=== PATIENT | male | born 1990 | race Caucasian/White ===

== ENCOUNTER 2017-06-01 19:26 | Emergency (ER) | payer MEDICAID ==
[2017-06-01] MEDS ORDERED: ACETAMINOPHEN 325 MG TABLET PO STA (19:45)
[2017-06-01] MEDS ORDERED: SODIUM CHLORIDE 0.9% 1,000 ML IV ONE (20:27)
[2017-06-01] MEDS ORDERED: KETOROLAC 60 MG/2 ML VIAL IVP STA (20:27)
[2017-06-01] MEDS ORDERED: DEXAMETHASONE 10 MG/ML VIAL IVP STA (20:27)
--- NOTE | 2017-06-01 20:35 | ED Physician Documentation ---
History of Present Illness - Stated complaint Stated Complaint: BODY ACHES/HEADACHE/D/FEVER - Chief complaint Chief Complaint: General - History obtained from History obtained from: Family (Sick for 2 days with body aches, cough, severe chills and poor oral intake.) Review of Systems Constitutional: reports: Fever, Chills, Myalgias, Fatigue Nose: reports: Rhinorrhea / runny nose Throat: denies: Sore throat Respiratory: reports: Dyspnea, Cough GI: denies: Abdominal Pain, Vomiting PD PAST MEDICAL HISTORY - Past Medical History Past Medical History: Yes Respiratory: Asthma - Past Surgical History Past Surgical History: No - Present Medications Home Medications: Ambulatory Orders Medication Instructions Recorded Confirmed HYDROcod/ACETAM 5/325 [[place] 5/325] 1 - 2 ea PO Q6H PRN #10 tablet 06/01/17 Ibuprofen [Motrin] 800 mg PO Q8H PRN #30 tablet 06/01/17 Ondansetron HCl [Zofran] 4 mg PO Q6H PRN #10 tablet 06/01/17 Oseltamivir [Tamiflu] 75 mg PO BID #10 capsule 06/01/17 - Allergies Allergies/Adverse Reactions: Allergies Allergy/AdvReac Type Severity Reaction Status Date / Time No Known Drug Allergies Allergy Verified 06/01/17 19:30 - Social History Does the pt smoke?: No Smoking Status: Never smoker Does the pt drink ETOH?: No Does the pt have substance abuse?: No PD ED PE NORMAL - Vitals Vital signs reviewed: Yes - General General: Alert and oriented X 3, No acute distress - HEENT HEENT: PERRL, EOMI - Neck Neck: Supple, no meningeal sign, No bony TTP - Cardiac Cardiac: RRR, No murmur - Respiratory Respiratory: No respiratory distress, Clear bilaterally - Abdomen Abdomen: Non tender - Derm Derm: No rash - Neuro Neuro: Alert and oriented X 3, Normal speech - Psych Psych: Normal mood, Normal affect Results - Vitals Vitals: Vital Signs - 24 hr 06/01/17 06/01/17 19:38 21:03 Temperature 37.7 C H 99.8 C H Heart Rate 111 H 75 Respiratory 26 H 18 Rate Blood Pressure 116/79 124/65 O2 Saturation 98 95 Oxygen O2 Source Room air - Labs Labs: Laboratory Tests 06/01/17 19:59 Influenza A (Rapid) Negative Influenza B (Rapid) POSITIVE H Influenza Types A,B Ag + H - Rads (name of study) 2v chest Radiology: EMP read contemporaneously (normal) Departure - Departure Disposition: 01 Home, Self Care Clinical Impression: Influenza B Condition: Good Record reviewed to determine appropriate education?: Yes Instructions: ED Flu, Medication: Tamiflu (Oseltamivir) Prescriptions: HYDROcod/ACETAM 5/325 [[place] 5/325] 1 - 2 ea PO Q6H PRN #10 tablet PRN Reason: Pain Ibuprofen [Motrin] 800 mg PO Q8H PRN #30 tablet PRN Reason: PAIN &/OR FEVER Ondansetron HCl [Zofran] 4 mg PO Q6H PRN #10 tablet PRN Reason: Nausea / Vomiting Oseltamivir [Tamiflu] 75 mg PO BID #10 capsule Comments: Call your doctor to arrange a follow-up appointment, make the next available appointment. In the interim, return anytime if worse or if new symptoms develop. Forms: Activity restrictions
--- NOTE | 2017-06-01 20:59 | XRAY Preliminary Report ---
Exam: XR CHEST 2 VIEW X-RAY IMPRESSION: Normal 2-view chest radiography. [facility] SITE ID: [id number]
--- NOTE | 2017-06-01 20:59 | XRAY Report ---
EXAM: CHEST RADIOGRAPHY EXAM DATE: 06/01/2017 08:35 PM. CLINICAL HISTORY: Cough. COMPARISON: None. TECHNIQUE: 2 views. FINDINGS: Lungs/Pleura: No focal opacities evident. No pleural effusion. No pneumothorax. Normal volumes. Mediastinum: Heart and mediastinal contours are unremarkable. Other: None. IMPRESSION: Normal 2-view chest radiography. [facility] Referring Provider Line: [phone] SITE ID: [id number]
[2017-06-01 21:04] VITALS: BP 124/65
[2017-06-01] MEDS ORDERED: OSELTAMIVIR 75 MG CAPSULE PO STA (21:04)
== END 2017-06-01 21:30 | disposition home or self-care (01) ==
LOC: ED 19:26
DX: J11.1 Influenza due to unidentified influenza virus with other respiratory manifestations (principal)
CPT/HCPCS: 36415; 71046; 87275; 87276; 96361; 96374; 96375; 99283; A9270

== ENCOUNTER 2018-02-17 19:44 | Emergency (ER) | payer MEDICAID ==
--- NOTE | 2018-02-17 21:53 | ED Physician Documentation ---
History of Present Illness - Stated complaint Stated Complaint: COUGH/WEAKNESS - Chief complaint Chief Complaint: Resp - History obtained from History obtained from: Patient - History of Present Illness Timing: Today Pain level max: 0 Pain level now: 0 Improved by: no ameliorating factors Worsened by: ambulation, coughing - Additonal information Additional information: c/o cough that is productive at times, chest pain, generalized weakness and malaise, dizziness with standing and has had 2 brief syncopal episodes after standing up (few seconds before recovering consciousness). symptoms started yesterday Review of Systems Constitutional: reports: Chills, Myalgias, Fatigue, Sweats. denies: Fever (did not take temperature at home) Throat: denies: Sore throat Cardiac: reports: Chest pain / pressure. denies: Pedal edema Respiratory: reports: Cough. denies: Dyspnea, Hemoptysis, Wheezing GI: denies: Abdominal Pain : denies: Dysuria Neurologic: reports: Generalized weakness. denies: Focal weakness, Numbness PD PAST MEDICAL HISTORY - Past Medical History Past Medical History: No Cardiovascular: None Respiratory: Asthma Neuro: None Endocrine/Autoimmune: None GI: None : None HEENT: None Psych: None Musculoskeletal: None Derm: None - Past Surgical History Past Surgical History: No - Present Medications Home Medications: Ambulatory Orders Medication Instructions Recorded Confirmed Benzonatate [Tessalon Perle] 100 - 200 mg PO TID PRN #30 capsule 02/17/18 guaiFENesin/CODEINE [Robitussin AC] 5 - 10 ml PO Q6H PRN #100 udc 02/17/18 - Allergies Allergies/Adverse Reactions: Allergies Allergy/AdvReac Type Severity Reaction Status Date / Time No Known Drug Allergies Allergy Verified 02/17/18 19:51 - Social History Does the pt smoke?: No Smoking Status: Never smoker Does the pt drink ETOH?: No Does the pt have substance abuse?: No - Immunizations Immunizations are current?: Yes - POLST Patient has POLST: No PD ED PE NORMAL - Vitals Vital signs reviewed: Yes - General General: Alert and oriented X 3, Well developed/nourished, Other (frequent coughing during H+P; appears uncomfortable (no respiratory distress nor obvious painful distress, but appears achy and listless)) - HEENT HEENT: Pharynx benign, Other (pasty/tacky mucous membranes) - Neck Neck: Supple, no meningeal sign - Cardiac Cardiac: RRR, No murmur - Respiratory Respiratory: No respiratory distress, Clear bilaterally - Abdomen Abdomen: Soft, Non tender - Derm Derm: Normal color, Warm and dry - Extremities Extremities: No edema Results - Vitals Vitals: Vital Signs - 24 hr 02/17/18 02/17/18 19:49 23:46 Temperature 37.1 C Heart Rate 86 79 Respiratory 22 16 Rate Blood Pressure 123/75 128/81 H O2 Saturation 97 98 Oxygen O2 Source Room air - Labs Labs: Laboratory Tests 02/17/18 02/17/18 02/17/18 22:22 22:22 22:28 WBC 10.1 RBC 5.49 Hgb 15.8 Hct 46.2 MCV 84.3 MCH 28.8 MCHC 34.2 RDW 13.2 Plt Count 203 MPV 9.2 Neut # (Auto) 6.5 Lymph # (Auto) 2.5 [place] # (Auto) 0.8 Eos # (Auto) 0.2 Baso # (Auto) 0.1 Absolute Nucleated RBC 0.01 Nucleated RBC % 0.1 Sodium 137 Potassium 3.7 Chloride 102 Carbon Dioxide 27 Anion Gap 8.0 BUN 16 Creatinine 0.8 Estimated GFR (MDRD) 116 Glucose 91 Calcium 9.5 Influenza A (Rapid) Negative Influenza B (Rapid) Negative - Rads (name of study) chest xray Radiology: Prelim report reviewed, See rad report PD MEDICAL DECISION MAKING - ED course Complexity details: reviewed old records, reviewed results, re-evaluated patient, considered differential, d/w patient Departure - Departure Disposition: 01 Home, Self Care Clinical Impression: Bronchitis Condition: Good Instructions: ED Upper Resp Infec No Abx Tx Follow-Up: Raudel Stone PA-C [Primary Care Provider] - Prescriptions: Benzonatate [Tessalon Perle] 100 - 200 mg PO TID PRN #30 capsule PRN Reason: Cough guaiFENesin/CODEINE [Robitussin AC] 5 - 10 ml PO Q6H PRN #100 udc PRN Reason: Cough Forms: Activity restrictions Discharge Date/Time: 02/17/18 23:47
[2018-02-17] MEDS ORDERED: SODIUM CHLORIDE 0.9% 1,000 ML IV STA (22:09)
--- NOTE | 2018-02-17 22:23 | XRAY Report ---
Reason: cough, dyspnea Procedure Date: 02/17/2018 Accession Number: [id number] / [id number] Procedure: XR - Chest 2 View X-Ray CPT Code: 90563 FULL RESULT: EXAM: CHEST RADIOGRAPHY EXAM DATE: 02/17/2018 10:18 PM. CLINICAL HISTORY: Cough, dyspnea. COMPARISON: CHEST 2 VIEW 06/01/2017 8:34 PM. TECHNIQUE: 2 views. FINDINGS: Lungs/Pleura: No focal opacities evident. No pleural effusion. No pneumothorax. Normal volumes. Mediastinum: Heart and mediastinal contours are unremarkable. Other: None. IMPRESSION: Normal 2-view chest radiography. No significant interval change. [facility]
[2018-02-17 22:38] LABS: BASOPHILS # (AUTO) 0.1 10^3/uL (0.0-0.1); BASOPHILS % (AUTO) 0.6 %; EOSINOPHILS # (AUTO) 0.2 10^3/uL (0.0-0.7); EOSINOPHILS % (AUTO) 2.4 %; HGB - HEMOGLOBIN 15.8 g/dL (14.0-18.0); LYMPHOCYTES # (AUTO) 2.5 10^3/uL (1.5-3.5); LYMPHOCYTES % (AUTO) 24.6 %; MEAN CORPUSCULAR HEMOGLOBIN 28.8 pg (27.0-31.0); MEAN CORPUSCULAR HGB CONC 34.2 g/dL (32.0-36.0); MEAN CORPUSCULAR VOLUME 84.3 fL (80.0-94.0); MEAN PLATELET VOLUME 9.2 fL (7.4-11.4); MONOCYTES # (AUTO) 0.8 10^3/uL (0.0-1.0); MONOCYTES % (AUTO) 8.4 %; NEUTROPHILS # (AUTO) 6.5 10^3/uL (1.5-6.6); PLT - PLATELET COUNT 203 10^3/uL (130-450); RED BLOOD COUNT 5.49 10^6/uL (4.70-6.10); RED CELL DISTRIBUTION WIDTH 13.2 % (12.0-15.0); WHITE BLOOD COUNT 10.1 x10^3/uL (4.8-10.8)
[2018-02-17 22:45] LABS: CALCIUM 9.5 mg/dL (8.5-10.3); CREATININE 0.8 mg/dL (0.6-1.2)
[2018-02-17] MEDS ORDERED: BENZONATATE 100 MG CAPSULE PO STA (23:11)
[2018-02-17] MEDS ORDERED: guaiFENesin/CODEINE 5 ML UDC PO STA (23:11)
[2018-02-17 23:47] VITALS: BP 128/81
== END 2018-02-17 23:47 | disposition home or self-care (01) ==
LOC: ED 19:44
DX: J40 Bronchitis, not specified as acute or chronic (principal)
CPT/HCPCS: 36415; 71046; 80048; 85025; 87275; 87276; 96360; 99283; A9270

== ENCOUNTER 2018-04-13 08:32 | Emergency (ER) | payer OTHER, MEDICAID ==
[2018-04-13 08:41] VITALS: BP 122/76
--- NOTE | 2018-04-13 08:51 | ED Physician Documentation ---
PD HPI TRUNK INJURY - Stated complaint Stated Complaint: LT LOWER RIB PX - Chief complaint Chief Complaint: General - History obtained from History obtained from: Patient - History of Present Illness Location: Anterior chest, Left chest Type of injury: Twist (he was lifting heavy object at work and felt onset pain left lower rib. Eased some the following day and today, then felt pain abrupt again when he was leaning over against something and felt a sudden pain same area again.) Timing - onset: How many days ago (2) Timing - duration: Days (2) Timing - details: Abrupt onset, Waxing and waning Quality: Pain, Sharp Improved by: Rest, Immobilization (if he holds hand against the area) Worsened by: Moving, Palpating, Other (deep breathing) Associated symtptoms: No: Weakness, Numbness Contributing factors: No: Anticoagulated Similar symptoms before: Has not had sx before Recently seen: Not recently seen Review of Systems Constitutional: denies: Fever, Chills, Myalgias Nose: denies: Rhinorrhea / runny nose, Congestion Throat: denies: Sore throat Respiratory: denies: Cough GI: denies: Abdominal Pain, Nausea, Vomiting Skin: denies: Abrasion (s), Laceration (s) PD PAST MEDICAL HISTORY - Past Medical History Cardiovascular: None Respiratory: Asthma Neuro: None Endocrine/Autoimmune: None GI: None : None HEENT: None Psych: None Musculoskeletal: None Derm: None - Past Surgical History Past Surgical History: No - Present Medications Home Medications: Ambulatory Orders Medication Instructions Recorded Confirmed Hydrocodone/Acetaminophen [[place] 1 each PO Q6H PRN #12 tablet 04/13/18 5-325 Tablet] Naproxen 375 mg PO BID #20 tablet 04/13/18 - Allergies Allergies/Adverse Reactions: Allergies Allergy/AdvReac Type Severity Reaction Status Date / Time No Known Drug Allergies Allergy Verified 04/13/18 08:41 - Social History Does the pt smoke?: No Smoking Status: Never smoker Does the pt drink ETOH?: No Does the pt have substance abuse?: No - Immunizations Immunizations are current?: Yes - POLST Patient has POLST: No PD ED PE NORMAL - Vitals Vital signs reviewed: Yes - General General: Alert and oriented X 3, No acute distress, Well developed/nourished - Cardiac Cardiac: RRR, No murmur - Respiratory Respiratory: No respiratory distress, Clear bilaterally, Other (left lower costal margin at mid clavicular line with tenderness. no crepitance. ) - Abdomen Abdomen: Normal bowel sounds, Soft, Non tender, Non distended, No organomegaly - Derm Derm: Normal color, Warm and dry Results - Vitals Vitals: Vital Signs - 24 hr 04/13/18 08:39 Temperature 35.6 C L Heart Rate 76 Respiratory 14 Rate Blood Pressure 122/76 O2 Saturation 100 Oxygen O2 Source Room air - Rads (name of study) chest xray Radiology: Prelim report reviewed (normal xray), EMP read contemporaneously PD MEDICAL DECISION MAKING - ED course Complexity details: reviewed results, considered differential (strain vs contusion of the lower cartilage/costal margin. ), d/w patient Departure - Departure Disposition: 01 Home, Self Care Clinical Impression: Costal margin pain Strain of chest wall Qualifiers: Encounter type: initial encounter Qualified Code(s): S29.011A - Strain of muscle and tendon of front wall of thorax, initial encounter Condition: Stable Record reviewed to determine appropriate education?: Yes Instructions: ED Strain Chest Wall Follow-Up: Raudel Stone PA-C [Primary Care Provider] - Prescriptions: Hydrocodone/Acetaminophen [[place] 5-325 Tablet] 1 each PO Q6H PRN #12 tablet PRN Reason: Pain Naproxen 375 mg PO BID #20 tablet Comments: Anti-inflammatory such as naproxen twice daily for the next 7-10 days. Add Tylenol or hydrocodone as needed for pain. Light lifting the next few days to reduce the tension at the cartilage. Recheck if not improved over the next several days to week. Forms: Activity restrictions Discharge Date/Time: 04/13/18 09:40
[2018-04-13] MEDS ORDERED: oxyCODONE 5 MG TABLET PO STA (09:14)
[2018-04-13] MEDS ORDERED: NAPROXEN 250 MG TABLET PO STA (09:14)
--- NOTE | 2018-04-13 09:23 | XRAY Report ---
Reason: rib pain poss fx. Procedure Date: 04/13/2018 Accession Number: [id number] / [id number] Procedure: XR - Ribs w/PA Chest LT CPT Code: FULL RESULT: EXAM: LEFT RIB RADIOGRAPHY EXAM DATE: 04/13/2018 08:55 AM. CLINICAL HISTORY: Rib pain possible fx. COMPARISON: CHEST 2 VIEW 02/17/2018 10:10 PM. TECHNIQUE: 1 view of the chest and 3 views of the ribs. FINDINGS: Bones: Normal. No displaced fracture or bone lesion. Lungs: No focal opacities. No pneumothorax. No pleural effusions. Mediastinum: Heart and mediastinal contours are unremarkable. Other: None. IMPRESSION: Normal chest and rib radiography. No displaced fracture identified. [facility]
== END 2018-04-13 09:40 | disposition home or self-care (01) ==
LOC: ED 08:32
DX: S29.011A Strain of muscle and tendon of front wall of thorax, initial encounter (principal); R07.1 Chest pain on breathing; X50.0XXA Overexertion from strenuous movement or load, initial encounter; Y93.89 Activity, other specified; Y92.89 Other specified places as the place of occurrence of the external cause; Y99.0 Civilian activity done for income or pay
CPT/HCPCS: 71101; 99283; A9270

== ENCOUNTER 2018-04-15 05:20 | Emergency (ER) | payer OTHER, MEDICAID ==
--- NOTE | 2018-04-15 05:36 | ED Physician Documentation ---
History of Present Illness - Stated complaint Stated Complaint: LT RIB PAIN - Chief complaint Chief Complaint: General - History obtained from History obtained from: Patient - Additonal information Additional information: 27-year-old male returns to the emergency department with ongoing rib pain. The patient was seen 2 days ago for the same symptoms. The patient had an x-ray at that time which showed no evidence of pneumothorax or rib fractures. The patient reports ongoing pain secondary to lifting and moving at work. The patient is in the emergency department for a work release for the next week. The patient states he needs a week off to let his Ribs rest. The patient denies Any new trauma. The patient denies any new or different symptoms. The patient has not taken any medications to help his pain Review of Systems Constitutional: denies: Fever, Chills Eyes: denies: Discharge Ears: denies: Ear pain Nose: denies: Congestion Throat: denies: Sore throat Cardiac: denies: Chest pain / pressure Respiratory: denies: Cough GI: denies: Abdominal Pain Musculoskeletal: denies: Neck pain PD PAST MEDICAL HISTORY - Past Medical History Cardiovascular: None Respiratory: Asthma Neuro: None Endocrine/Autoimmune: None GI: None : None HEENT: None Psych: None Musculoskeletal: None Derm: None - Past Surgical History Past Surgical History: No - Present Medications Home Medications: Ambulatory Orders Medication Instructions Recorded Confirmed Hydrocodone/Acetaminophen [[place] 1 each PO Q6H PRN #12 tablet 04/13/18 5-325 Tablet] Naproxen 375 mg PO BID #20 tablet 04/13/18 - Allergies Allergies/Adverse Reactions: Allergies Allergy/AdvReac Type Severity Reaction Status Date / Time No Known Drug Allergies Allergy Verified 04/13/18 08:41 - Social History Does the pt smoke?: No Smoking Status: Never smoker Does the pt drink ETOH?: No Does the pt have substance abuse?: No - Immunizations Immunizations are current?: Yes - POLST Patient has POLST: No PD ED PE NORMAL - General General: Alert and oriented X 3, No acute distress - HEENT HEENT: Atraumatic, PERRL, EOMI, Ears normal - Cardiac Cardiac: RRR, Strong equal pulses - Respiratory Respiratory: No respiratory distress, Clear bilaterally, Other (The patient has good equal bilateral breath sounds. The patient has no crepitus or subcutaneous emphysema on examination. The patient is tender to palpation in the left mid axillary ribs) - Abdomen Abdomen: Soft, Non tender - Derm Derm: Normal color - Extremities Extremities: No deformity - Neuro Neuro: Alert and oriented X 3, Normal speech Results - Vitals Vitals: Vital Signs - 24 hr 04/15/18 05:26 Temperature 36.5 C Heart Rate 81 Respiratory 16 Rate Blood Pressure 122/86 H O2 Saturation 98 Oxygen O2 Source Room air PD MEDICAL DECISION MAKING - ED course ED course: The patient has no new injury or trauma, The patient has good lung sounds bilaterally on exam clinically there is no findings to suggest pneumothorax or rib fracture. I do not think repeat imaging is necessary at this time. The patient mainly is asking for a work release. I discussed warning signs and recommended returning for any worsening or concerns. Departure - Departure Disposition: 01 Home, Self Care Clinical Impression: Rib sprain Qualifiers: Encounter type: initial encounter Qualified Code(s): S23.41XA - Sprain of ribs, initial encounter Condition: Good Instructions: ED Strain Chest Wall Ch Follow-Up: Raudel Stone PA-C [Primary Care Provider] - Within 1 week Comments: Please return to the ED for worsening symptoms or any concerns Forms: Activity restrictions
[2018-04-15] MEDS ORDERED: NAPROXEN 250 MG TABLET PO STA (06:10)
[2018-04-15 06:17] VITALS: BP 122/85
== END 2018-04-15 06:18 | disposition home or self-care (01) ==
LOC: ED 05:20
DX: S23.41XA Sprain of ribs, initial encounter (principal); X50.0XXA Overexertion from strenuous movement or load, initial encounter; Y99.0 Civilian activity done for income or pay
CPT/HCPCS: 99283; A9270

== ENCOUNTER 2018-05-09 22:00 | Outpatient (CLI) | payer OTHER, MEDICAID ==
--- NOTE | 2018-05-10 06:02 | Ultrasound Report ---
Reason: LUQ PAIN,RIB PAIN,LEFT SIDED Procedure Date: 05/09/2018 Accession Number: [id number] / [id number] Procedure: US - Abdomen Limited CPT Code: FULL RESULT: EXAM: ABDOMEN ULTRASOUND LIMITED EXAM DATE: 05/09/2018 10:23 PM. CLINICAL HISTORY: Left upper quadrant pain, rib pain, left-sided. COMPARISON: None. TECHNIQUE: Real-time scanning was performed with static images obtained. FINDINGS: Spleen: Normal appearance, 11 cm in length. Left kidney: Normal appearance, 9 cm in length. Free fluid: None seen. IMPRESSION: 1. No gross splenic injury is seen by ultrasound. 2. No free fluid. 3. If there is continued clinical concern, CT with contrast is suggested. [facility]
== END 2018-05-09 22:01 | disposition home or self-care (01) ==
LOC: DI 22:00
PROVIDERS: ATTEND Physician Assistant Medical
DX: R10.12 Left upper quadrant pain (principal); R07.81 Pleurodynia
CPT/HCPCS: 76705

== ENCOUNTER 2019-03-21 21:30 | Emergency (ER) | payer MEDICAID, OTHER ==
--- NOTE | 2019-03-21 21:58 | ED Physician Documentation ---
PD HPI ABD PAIN - Stated complaint Stated Complaint: ABD PX/DURON - Chief complaint Chief Complaint: Abd Pain - History obtained from History obtained from: Patient - History of Present Illness Timing - onset: How many days ago (2) Timing - details: Gradual onset Pain level now: 6 Quality: Pain Location: RLQ Radiation: Other (does not radiate) Improved by: No: Eating, Laying still, Vomiting, BM, Position, Meds Worsened by: No: Eating, Moving, Breathing, Position, Palpation Associated symptoms: No: Fever, Nausea, Diarrhea, Constipation Similar symptoms before: Has not had sx before - Additional information Additional information: c/o 2-3 days of RLQ abdominal pain as well as generalized headache. Review of Systems Constitutional: reports: Reviewed and negative Cardiac: reports: Reviewed and negative Respiratory: reports: Reviewed and negative GI: reports: Abdominal Pain. denies: Nausea, Vomiting, Constipation, Diarrhea : denies: Dysuria, Frequency, Hematuria Neurologic: reports: Headache. denies: Focal weakness, Numbness, Head injury PD PAST MEDICAL HISTORY - Past Medical History Past Medical History: No Cardiovascular: None Respiratory: Asthma Neuro: None Endocrine/Autoimmune: None GI: None : None HEENT: None Psych: None Musculoskeletal: None Derm: None - Past Surgical History Past Surgical History: No - Present Medications Home Medications: Ambulatory Orders Medication Instructions Recorded Confirmed Oxycodone HCl/Acetaminophen 1 - 2 each PO Q6H PRN #10 tablet 03/22/19 [Percocet 5-325 mg Tablet] - Allergies Allergies/Adverse Reactions: Allergies Allergy/AdvReac Type Severity Reaction Status Date / Time No Known Drug Allergies Allergy Verified 04/13/18 08:41 - Social History Does the pt smoke?: No Smoking Status: Never smoker Does the pt drink ETOH?: No Does the pt have substance abuse?: No - Immunizations Immunizations are current?: Yes - POLST Patient has POLST: No PD ED PE NORMAL - Vitals Vital signs reviewed: Yes - General General: Alert and oriented X 3, No acute distress, Well developed/nourished - HEENT HEENT: Moist mucous membranes - Neck Neck: Supple, no meningeal sign - Cardiac Cardiac: RRR, No murmur - Respiratory Respiratory: No respiratory distress, Clear bilaterally - Abdomen Abdomen: Soft, Non distended, Other (mild/moderate RLQ tenderness without guarding or rebound) - Back Back: No CVA TTP - Derm Derm: Normal color, Warm and dry Results - Vitals Vitals: Oxygen O2 Source Room air - Labs Labs: Laboratory Tests 03/21/19 03/21/19 03/22/19 22:12 22:12 00:10 WBC 6.8 RBC 5.56 Hgb 16.0 Hct 48.3 MCV 86.9 MCH 28.8 MCHC 33.1 RDW 12.5 Plt Count 233 MPV 11.1 Neut # (Auto) 3.5 Lymph # (Auto) 2.4 [place] # (Auto) 0.7 Eos # (Auto) 0.2 Baso # (Auto) 0.1 Absolute Nucleated RBC 0.00 Nucleated RBC % 0.0 Sodium 141 Potassium 3.8 Chloride 105 Carbon Dioxide 27 Anion Gap 9.0 BUN 15 Creatinine 0.7 Estimated GFR (MDRD) 134 Glucose 92 Calcium 9.5 Total Bilirubin 0.8 AST 34 ALT 26 Alkaline Phosphatase 51 Total Protein 8.2 Albumin 4.8 Globulin 3.4 Albumin/Globulin Ratio 1.4 Lipase 27 Urine Color YELLOW Urine Clarity CLEAR Urine pH 5.5 Ur Specific [place] >=1.030 H Urine Protein NEGATIVE Urine Glucose (UA) NEGATIVE Urine Ketones NEGATIVE Urine Occult Blood NEGATIVE Urine Nitrite NEGATIVE Urine Bilirubin NEGATIVE Urine Urobilinogen 0.2 (NORMAL) Ur Leukocyte Esterase NEGATIVE Ur Microscopic Review NOT INDICATED Urine Culture Comments NOT INDICATED - Rads (name of study) CT A/P Radiology: Prelim report reviewed, See rad report PD MEDICAL DECISION MAKING - ED course Complexity details: reviewed results, re-evaluated patient, considered differential, d/w patient Departure - Departure Disposition: 01 Home, Self Care Clinical Impression: Abdominal pain Condition: Good Instructions: ED Abdominal Pain Unkn Cause Male Follow-Up: Raudel Stone PA-C [Primary Care Provider] - Within 1 week Prescriptions: Oxycodone HCl/Acetaminophen [Percocet 5-325 mg Tablet] 1 - 2 each PO Q6H PRN #10 tablet PRN Reason: pain Forms: Activity restrictions Discharge Date/Time: 03/22/19 00:24
[2019-03-21 22:36] LABS: BASOPHILS # (AUTO) 0.1 10^3/uL (0.0-0.1); BASOPHILS % (AUTO) 0.7 %; EOSINOPHILS # (AUTO) 0.2 10^3/uL (0.0-0.7); EOSINOPHILS % (AUTO) 2.2 %; LYMPHOCYTES # (AUTO) 2.4 10^3/uL (1.5-3.5); LYMPHOCYTES % (AUTO) 34.6 %; MEAN CORPUSCULAR HEMOGLOBIN 28.8 pg (27.0-31.0); MEAN CORPUSCULAR HGB CONC 33.1 g/dL (32.0-36.0); MEAN CORPUSCULAR VOLUME 86.9 fL (80.0-94.0); MEAN PLATELET VOLUME 11.1 fL (7.4-11.4); MONOCYTES # (AUTO) 0.7 10^3/uL (0.0-1.0); MONOCYTES % (AUTO) 10.3 %; NEUTROPHILS # (AUTO) 3.5 10^3/uL (1.5-6.6); NEUTROPHILS % (AUTO) 51.3 %; PLT - PLATELET COUNT 233 10^3/uL (130-450); RED BLOOD COUNT 5.56 10^6/uL (4.70-6.10); RED CELL DISTRIBUTION WIDTH 12.5 % (12.0-15.0); WHITE BLOOD COUNT 6.8 x10^3/uL (4.8-10.8)
[2019-03-21 22:46] LABS: ALBUMIN 4.8 g/dL (3.2-5.5); ALBUMIN/GLOBULIN RATIO 1.4 (1.0-2.2); BILIRUBIN,TOTAL 0.8 mg/dL (0.2-1.0); CALCIUM 9.5 mg/dL (8.5-10.3); CREATININE 0.7 mg/dL (0.6-1.2); TOTAL PROTEIN 8.2 g/dL (6.7-8.2)
[2019-03-21] MEDS ORDERED: IOVERSOL 320 100 ML VIAL IVP ONE ×2 (23:01→23:28)
--- NOTE | 2019-03-21 23:38 | CT Report ---
Reason: RLQ pain, tenderness Procedure Date: 03/21/2019 Accession Number: [id number] / [id number] Procedure: CT - Abdomen/Pelvis W CPT Code: Final Report FULL RESULT: EXAM: CT ABDOMEN AND PELVIS EXAM DATE: 03/21/2019 11:26 PM. CLINICAL HISTORY: RLQ pain, tenderness. COMPARISONS: None. TECHNIQUE: Routine helical CT imaging was performed through the abdomen and pelvis. IV contrast: OPTI 320 100ML. Enteric contrast: No. Reconstructions: Coronal and sagittal. In accordance with CT protocol optimization, one or more of the following dose reduction techniques were utilized for this exam: automated exposure control, adjustment of mA and/or KV based on patient size, or use of iterative reconstructive technique. FINDINGS: Lung Bases: Unremarkable. Liver: Normal. No masses. Gallbladder/Bile Ducts: Unremarkable. Spleen: Normal. Pancreas: Normal. Adrenal Glands: Normal. Kidneys: Normal. No masses or hydronephrosis. Peritoneal Cavity/Bowel: Normal. No free fluid, free air or adenopathy. No masses or acute inflammatory process. The appendix is well visualized and normal. Pelvic Organs: Normal. The bladder and visualized pelvic organs are within normal limits. Vasculature: No aneurysms or other significant abnormality. Bones: No significant abnormality. Other: None. IMPRESSION: Normal abdomen and pelvis CT. No evident etiology for patient's pain. [facility]
[2019-03-22] MEDS ORDERED: KETOROLAC 30 MG/ML VIAL IVP STA (00:11)
[2019-03-22] MEDS ORDERED: oxyCODONE 5 MG TABLET PO STA (00:11)
[2019-03-22 00:25] VITALS: BP 125/78
[2019-03-22 00:30] LABS: BILIRUBIN,URINE NEGATIVE (NEGATIVE); GLUCOSE, URINE (UA) NEGATIVE (NEGATIVE); KETONES,URINE (UA) NEGATIVE (NEGATIVE); LEUKOCYTE ESTERASE, URINE NEGATIVE (NEGATIVE); NITRITE,URINE NEGATIVE (NEGATIVE); OCCULT BLOOD,URINE NEGATIVE (NEGATIVE); PH,URINE 5.5 PH (5.0-7.5); PROTEIN,URINE NEGATIVE (NEGATIVE); UROBILINOGEN,URINE 0.2 (NORMAL) E.U./dL (NORMAL)
[2019-03-22 00:34] LABS: CLARITY,URINE CLEAR (CLEAR)
== END 2019-03-22 00:24 | disposition home or self-care (01) ==
LOC: ED 21:30
DX: R10.31 Right lower quadrant pain (principal); R51 Headache
CPT/HCPCS: 36415; 74177; 80053; 81003; 83690; 85025; 96374; 99284; A9270; Q9967; 81001; 87086

== ENCOUNTER 2019-06-06 09:21 | Emergency (ER) | payer MEDICAID ==
[2019-06-06 09:40] VITALS: BP 124/80
--- NOTE | 2019-06-06 09:42 | ED Physician Documentation ---
PD HPI HEENT - Stated complaint Stated Complaint: MOUTH PX,BUMP - Chief complaint Chief Complaint: Heent - History obtained from History obtained from: Patient - History of Present Illness Timing - onset: How many days ago (2-3) Timing - duration: Days (2-3) Timing - details: Gradual onset Location: Mouth (He had had a recurrent cold sore in the right lower lip that lasted about 3 to 4 days and was improving and then started having pain and swelling and redness in that same area. He has had a little bit of purulent discharge from a small spot. It is increasing in pain the last day.) Associated symptoms: Facial swelling (Starting to have swelling in the larger area of the lower lip and not just that area that had the cold sore.). No: Fever Similar symptoms before: Diagnosis (Has had a cold sore in there a couple times before but usually resolves. He has not had a develop increased pain and swelling like this) Recently seen: Not recently seen Review of Systems Constitutional: denies: Fever, Chills Throat: reports: Oral lesions / sores (right lower lip). denies: Dental pain / toothache, Sore throat Cardiac: denies: Chest pain / pressure Respiratory: denies: Dyspnea, Cough PD PAST MEDICAL HISTORY - Past Medical History Cardiovascular: None Respiratory: Asthma Neuro: None Endocrine/Autoimmune: None GI: None : None HEENT: None Psych: None Musculoskeletal: None Derm: None - Past Surgical History Past Surgical History: No - Present Medications Home Medications: Ambulatory Orders Medication Instructions Recorded Confirmed Oxycodone HCl/Acetaminophen 1 - 2 each PO Q6H PRN #10 tablet 03/22/19 [Percocet 5-325 mg Tablet] Doxycycline Monohydrate 100 mg PO BID #14 tablet 06/06/19 Hydrocodone/Acetaminophen [[place] 1 each PO Q6H PRN #12 tablet 06/06/19 5-325 Tablet] Mupirocin 1 applic TP TID #15 g 06/06/19 Naproxen 375 mg PO BID #20 tablet 06/06/19 - Allergies Allergies/Adverse Reactions: Allergies Allergy/AdvReac Type Severity Reaction Status Date / Time No Known Drug Allergies Allergy Verified 06/06/19 09:37 - Social History Does the pt smoke?: No Smoking Status: Never smoker Does the pt drink ETOH?: No Does the pt have substance abuse?: No - Immunizations Immunizations are current?: Yes - POLST Patient has POLST: No PD ED PE NORMAL - Vitals Vital signs reviewed: Yes - General General: Alert and oriented X 3, No acute distress, Well developed/nourished - HEENT HEENT: Moist mucous membranes, Pharynx benign, Other (The right lower lip shows local swelling and tenderness. Bedside ultrasound did not show any significant fluid collection but just a small 2 to 3 mm area just below the skin. There is a point area of erosion with a slight drainage in that spot. Otherwise some induration and swelling through the lip and into the right sided mandible. No submandibular swelling. No adenopathy.) - Neck Neck: Supple, no meningeal sign, No adenopathy - Cardiac Cardiac: RRR, No murmur - Respiratory Respiratory: Clear bilaterally Results - Vitals Vitals: Oxygen O2 Source Room air PD MEDICAL DECISION MAKING - ED course Complexity details: considered differential (Sounds like a staph infection in the area of a healing cold sore.), d/w patient Departure - Departure Disposition: 01 Home, Self Care Clinical Impression: Lip abscess Condition: Stable Record reviewed to determine appropriate education?: Yes Instructions: ED Staph Infec Abx Tx Only Follow-Up: Raudel Stone PA-C [Primary Care Provider] - Prescriptions: Doxycycline Monohydrate 100 mg PO BID #14 tablet Hydrocodone/Acetaminophen [[place] 5-325 Tablet] 1 each PO Q6H PRN #12 tablet PRN Reason: Pain Mupirocin 1 applic TP TID #15 g Naproxen 375 mg PO BID #20 tablet Comments: Cleanse area with soap and water 2-3 times a day and apply some mupirocin antibiotic ointment locally. Warm moist towels to the area periodically to help improve blood flow to the area and see if it will come to a point and drained some as well. Doxycycline antibiotic twice daily for a week. Anti-inflammatory naproxen twice daily to help with pain and inflammation. To that add Tylenol or hydrocodone as needed for pain. He should be hurting as badly as this just for the next day or 2 until the antibiotics have cleared the infection better. I would anticipate improvement over the next 2 to 3 days and resolution within a week. Recheck if worsening. Discharge Date/Time: 06/06/19 10:33
[2019-06-06] MEDS ORDERED: ACETAMINOPHEN 325 MG TABLET PO STA (10:04)
[2019-06-06] MEDS ORDERED: IBUPROFEN 600 MG TABLET PO STA (10:04)
[2019-06-06] MEDS ORDERED: DOXYCYCLINE 100 MG TABLET PO STA (10:04)
[2019-06-06] MEDS ORDERED: MUPIROCIN 2% OINT 1 GM TOP STA (10:07)
== END 2019-06-06 10:33 | disposition home or self-care (01) ==
LOC: ED 09:21
DX: K13.0 Diseases of lips (principal)
CPT/HCPCS: 99284; A9270

== ENCOUNTER 2019-08-25 14:32 | Outpatient (CLI) | payer MEDICAID ==
--- NOTE | 2019-08-25 16:07 | XRAY Report ---
Reason: BILATERAL HEEL PAIN Procedure Date: 08/25/2019 Accession Number: [id number] / [id number] Procedure: WCP - Foot 2 View BILAT CPT Code: Final Report FULL RESULT: PROCEDURE: Foot 2 View BILAT INDICATIONS: BILATERAL HEEL PAIN TECHNIQUE: 2 views of the foot were acquired. COMPARISON: none FINDINGS: Bones: No fractures or dislocations. No suspicious bony lesions. Soft tissues: No tibiotalar joint effusion. Achilles tendon appears normal. IMPRESSION: Bilateral feet without acute radiographic abnormalities. If there is persistent clinical concern for pathology, consider repeat radiographs, cross-sectional imaging with CT/MRI, or nuclear medicine bone scan. Reviewed by: Josse Hong MD on 08/25/2019 4:06 PM PDT Approved by: Josse Hong MD on 08/25/2019 4:06 PM PDT Station ID: [id number]
== END 2019-08-25 23:59 | disposition home or self-care (01) ==
LOC: DI.WCP 14:32
PROVIDERS: ATTEND Nurse Practitioner Family
DX: M79.672 Pain in left foot (principal); M79.671 Pain in right foot

== ENCOUNTER 2021-06-08 11:51 | Outpatient (CLI) | payer MEDICAID ==
--- NOTE | 2021-06-08 13:57 | XRAY Report ---
PROCEDURE: Chest 2 View X-Ray INDICATIONS: ASTHMA EXACERBATION TECHNIQUE: 2 view(s) of the chest. COMPARISON: None. FINDINGS: Surgical changes and devices: None. Lungs and pleura: No pleural effusions or pneumothorax. Lungs are clear. Mediastinum: Mediastinal contours are normal. Heart size is normal. Bones and chest wall: No suspicious bony abnormalities. Soft tissues appear unremarkable. IMPRESSION: No acute cardiopulmonary process demonstrated radiographically. Reviewed by: Iraj Alexandra MD on 06/08/2021 1:56 PM PDT Approved by: Iraj Alexandra MD on 06/08/2021 1:56 PM PDT Station ID: [id number]
== END 2021-06-08 23:59 | disposition home or self-care (01) ==
LOC: DI.N 11:51
PROVIDERS: ATTEND Physician Assistant Medical
DX: J45.901 Unspecified asthma with (acute) exacerbation (principal)

== ENCOUNTER 2022-10-02 08:00 | Outpatient (CLI) | payer MEDICAID | END 2022-10-02 23:59 | disposition home or self-care (01) | LOC: LAB.N 08:00 | PROVIDERS: ATTEND Physician Assistant | DX: J02.9 Acute pharyngitis, unspecified (principal) | CPT/HCPCS: 87070 ==

== ENCOUNTER 2023-08-31 19:11 | Emergency (ER) | payer MEDICAID ==
--- NOTE | 2023-08-31 21:11 | ED Physician Documentation ---
History of Present Illness - Stated complaint Stated Complaint: RT ABD PX/SOA/DIZZY - Chief complaint Chief Complaint: Trauma Abd - History obtained from History obtained from: Patient - History of Present Illness Pain level max: 8 Pain level now: 8 - Additonal information Additional information: 33-year-old male presents to the emergency room with right-sided rib pain. He was playing with his significant other's 13-year-old daughter when she accidentally kicked him in the right ribs. Pain is worse with movement and palpation. Has not taken anything for pain. No abdominal pain, vomiting. No hematuria. Not on blood thinners. Review of Systems Constitutional: denies: Fever Respiratory: denies: Cough GI: denies: Abdominal Pain, Vomiting, Diarrhea : denies: Hematuria Neurologic: denies: Headache, Head injury PD PAST MEDICAL HISTORY - Past Medical History Past Medical History: Yes Cardiovascular: None Respiratory: Asthma Neuro: None Endocrine/Autoimmune: None GI: None : None HEENT: None Psych: None Musculoskeletal: None Derm: None - Past Surgical History Past Surgical History: No - Present Medications Home Medications: Ambulatory Orders Medication Instructions Recorded Confirmed Ondansetron Odt [Zofran] 4 mg TL Q6H PRN #10 tablet 08/31/23 Oxycodone HCl/Acetaminophen 1 - 2 each PO Q6H PRN #14 tablet 08/31/23 [Percocet 5-325 mg Tablet] MDD 6 tabs - Allergies Allergies/Adverse Reactions: Allergies Allergy/AdvReac Type Severity Reaction Status Date / Time acetaminophen [From Vicodin] Allergy Hives Verified 08/31/23 19:24 hydrocodone [From Vicodin] Allergy Hives Verified 08/31/23 19:24 - Social History Does the pt smoke?: No Smoking Status: Never smoker Does the pt drink ETOH?: No Does the pt have substance abuse?: No - Immunizations Immunizations are current?: Yes - POLST Patient has POLST: No PD ED PE NORMAL - Vitals Vital signs reviewed: Yes - General General: Alert and oriented X 3, No acute distress - HEENT HEENT: Moist mucous membranes - Neck Neck: Supple, no meningeal sign - Cardiac Cardiac: RRR, Strong equal pulses - Respiratory Respiratory: No respiratory distress, Clear bilaterally - Abdomen Abdomen: Soft, Non tender, Non distended, Other (No abdominal tenderness. He is tender to palpation over the right lower ribs, approximately 10 through 11, lateral aspect. No crepitus. No ecchymosis. 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 Pain well-controlled after a dose of IM Dilaudid. Will place on pain medication for home. He states he develops a rash from hydrocodone but can take oxycodone. Will prescribe this for home. Will have him follow-up with his doctor for further care. Likely minor rib fracture versus contusion. Abdomen is soft, nontender nondistended. No tenderness over the liver, no CVA tenderness over the kidney. Patient counseled regarding signs and symptoms for which I believe and urgent re-evaluation would be necessary. Patient with good understanding of and agreement to plan and is comfortable going home at this time This document was made in part using voice recognition software. While efforts are made to proofread this document, sound alike and grammatical errors may occur. Departure - Departure Disposition: 01 Home, Self Care Clinical Impression: Contusion of rib on right side Qualifiers: Encounter type: initial encounter Qualified Code(s): S20.211A - Contusion of right front wall of thorax, initial encounter Condition: Good Instructions: ED Contusion Vs Minor Fx Rib Follow-Up: Ebony Morrow PA-C [Primary Care Provider] - Prescriptions: Oxycodone HCl/Acetaminophen [Percocet 5-325 mg Tablet] 1 - 2 each PO Q6H PRN #14 tablet MDD 6 tabs PRN Reason: pain Ondansetron Odt [Zofran] 4 mg TL Q6H PRN #10 tablet PRN Reason: Nausea / Vomiting Comments: There are no fractures visible on your x-ray today of your ribs. Your lungs appear normal as well. It is likely that you have bruised your ribs. Please follow-up with your doctor in 1 week if still having pain. Please return here if you have difficulty breathing, uncontrolled pain or any other new or worrisome symptoms. Your prescription was sent to [facility] in [place]. I am prescribing a short course of narcotic pain medication for you. These are potentially dangerous and addictive medications that should be used carefully. These medications may constipate you. Take an nrui-prw-nnqepbu stool softener (docusate) twice daily with plenty of water while taking these medications. If you go 24 hours without a bowel movement, take lwkd-wog-cobeloj miralax, per package instructions. Do not drink or drive while taking these medications. If you received narcotic or sedating medications while in the emergency department, do not drive for 24 hours. Store this medication in a safe, secure place and out of reach of children. It is a violation of federal law to give or sell this medication to another person or to use in a manner other than prescribed. The ED will not refill narcotic prescriptions, including prescriptions lost or stolen. To dispose of unwanted medications: 1. [facility] at [address] in [place] has a medication drop box. They accept prescription medications (in pill form) Saturday through Saturday 9:00 a.m. to 5:00 p.m. 2. The [facility] [employer] accepts prescription medications (in pill form only) for disposal year round. Call for more information. 3. Contact the [facility] for the next [facility] sponsored prescription drug collection event. , [phone], or [phone]; Forms: PCP List Discharge Date/Time: 08/31/23 22:55
[2023-08-31] MEDS: HYDROmorphone 1 MG/ML CARPUJECT IM STA (21:17)
--- NOTE | 2023-08-31 21:46 | XRAY Report ---
PROCEDURE: Ribs w/PA Chest 3+V RT INDICATIONS: R rib pain s/p kick TECHNIQUE: 5 views of the ribs were acquired, along with a single view chest. COMPARISON: 06/08/2021 FINDINGS: Surgical changes and devices: None. Bones and chest wall: No fractures or dislocations. No suspicious bony lesions. Overlying soft tis sues appear unremarkable. Lungs and pleura: No pleural effusions or pneumothorax. Lungs appear clear. Mediastinum: Mediastinal contours appear normal. Heart size is normal. IMPRESSION: No displaced rib fracture or pneumothorax. Reviewed by: Wenceslao Zelaya MD on 08/31/2023 8:45 PM AKDT Approved by: Wenceslao Zelaya MD on 08/31/2023 8:45 PM AKDT Station ID: [id number]
[2023-08-31] MEDS: oxyCODONE/ACET 5/325 Prepack 4 PO STA (22:49)
[2023-08-31] MEDS: ONDANSETRON ODT 4 MG TABLET TL STA (22:49)
[2023-08-31 22:59] VITALS: BP 130/89; O2SAT 98
== END 2023-08-31 22:55 | disposition home or self-care (01) ==
LOC: ED 19:11
DX: S20.211A Contusion of right front wall of thorax, initial encounter (principal); W50.0XXA Accidental hit or strike by another person, initial encounter; Y93.83 Activity, rough housing and horseplay
CPT/HCPCS: 71101; 96372; 99283; 99284; J1170; Q0162